=== PATIENT | female | born 2000 | race Caucasian/White ===

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

== ENCOUNTER 2023-02-21 06:35 | Inpatient (IN) ==
[2023-02-21] MEDS ORDERED: D5 1/2 NS 1,000 ML 1,000 ML IV SCH (06:39)
[2023-02-21] MEDS ORDERED: ANCEF VIAL 1 GRAM IVP ONE (06:39)
[2023-02-21] MEDS ORDERED: DILAUDID INJ ONE (06:42)
[2023-02-21] MEDS ORDERED: DIPRIVAN VIAL 20 ML ONE (06:43)
[2023-02-21] MEDS ORDERED: PEPCID 20 MG VIAL ONE (06:45)
[2023-02-21] MEDS ORDERED: MARCAINE SPINAL ONE (06:45)
[2023-02-21] MEDS ORDERED: XYLOCAINE 2 % (PLAIN) ONE (06:45)
[2023-02-21] MEDS ORDERED: PITOCIN ONE (06:45)
[2023-02-21] MEDS ORDERED: ZOFRAN INJ 4 MG VIAL ONE (06:45)
[2023-02-21] MEDS ORDERED: REGLAN INJ 10 MG VIAL ONE (06:45)
[2023-02-21] MEDS ORDERED: D5 1/2 NS 1,000 mL + PITOCIN 20 UNITS/L IV 20 UNITS/1,000 ML BAG IV ONE (06:49)
[2023-02-21] MEDS ORDERED: LR 1,000 ML IV 1,000 ML IV ONE ×3 (06:49→08:28)
[2023-02-21] MEDS ORDERED: NS 100 ML IV 100 ML ONE (07:10)
[2023-02-21] MEDS ORDERED: ANCEF VIAL 1 GRAM ONE (07:10)
[2023-02-21] MEDS ORDERED: EPHEDRINE SULFATE INJ ONE (07:43)
[2023-02-21] MEDS ORDERED: ROBINUL ONE (07:43)
[2023-02-21] MEDS ORDERED: ZOFRAN INJ 4 MG VIAL IVP PRN ×2 (08:22→09:45)
[2023-02-21] MEDS ORDERED: BENADRYL INJ 50 MG VIAL IVP PRN ×2 (08:22→09:45)
[2023-02-21] MEDS ORDERED: REGLAN INJ 10 MG VIAL IVP PRN ×2 (08:22→09:45)
[2023-02-21] MEDS ORDERED: BARHEMSYS INJ IVP PRN (08:22)
[2023-02-21] MEDS ORDERED: ADACEL or BOOSTRIX TDaP VACCINE IM ONE (09:45)
[2023-02-21] MEDS ORDERED: HYPERRHO S/D (or RHOGAM) IM PRN (09:45)
[2023-02-21] MEDS ORDERED: NARCAN INJ IVP PRN (09:45)
[2023-02-21] MEDS ORDERED: D5 1/2 NS 1,000 ML 1,000 ML with PITOCIN 20 UNITS IV SCH ×2 (09:45)
[2023-02-21] MEDS ORDERED: MYLICON TAB 80 MG CHEW PO PRN (09:45)
[2023-02-21] MEDS ORDERED: PERCOCET TAB 5/325 MG PO PRN (09:45)
[2023-02-21] MEDS ORDERED: TORADOL 30 MG VIAL IVP PRN (09:45)
[2023-02-21] MEDS: PRENATAL PLUS PO SCH (10:21)
[2023-02-21] MEDS ORDERED: NS IRRIGATION* 500 ML IR ONE (14:32)
[2023-02-21] MEDS: MOTRIN TAB 800 MG PO PRN (14:43)
[2023-02-22 05:41] LABS: HEMATOCRIT 26.5 % (36.0-47.0)
[2023-02-22 05:42] LABS: HEMOGLOBIN 9.1 g/dL (12.0-16.0)
[2023-02-22] MEDS ORDERED: PERCOCET TAB 5/325 MG PO PRN (07:27)
[2023-02-22] MEDS: MOTRIN TAB 800 MG PO PRN ×3 (07:54→23:40)
[2023-02-22] MEDS: PRENATAL PLUS PO SCH (09:29)
[2023-02-22] MEDS: COLACE CAP 100 MG PO SCH ×2 (09:29→21:17)
[2023-02-22] MEDS ORDERED: BACTROBAN TOPICAL OINT ONE (10:54)
[2023-02-22] MEDS: BACTROBAN TOPICAL OINT TOP SCH ×3 (10:57→21:18)
[2023-02-23] MEDS: BACTROBAN TOPICAL OINT TOP SCH (05:44)
[2023-02-23] MEDS: PRENATAL PLUS PO SCH (08:40)
[2023-02-23] MEDS: COLACE CAP 100 MG PO SCH (08:40)
[2023-02-23] MEDS: MOTRIN TAB 800 MG PO PRN (08:40)
[2023-02-23 08:41] VITALS: RESP 18
[2023-02-23 10:18] VITALS: BP 133/66; PULSE 78; TEMP 97.8; O2SAT 100
== END 2023-02-23 10:45 | disposition home or self-care (01) | DRG 788 ==
LOC: LD 06:35 → MED/SURG 09:37
PROVIDERS: ADMIT Specialist; ATTEND Specialist